=== PATIENT | female | born 1955 | race Caucasian/White ===

== ENCOUNTER 2020-10-07 13:37 | Outpatient (CLI) | payer OTHER, SELFPAY ==
--- NOTE | ~2020-10-07 | US_ITS ---
EXAMINATION: US venous doppler [facility] EXAM DATE: 10/07/2020 14:17 INDICATION: Left foot and leg pain. TECHNIQUE: Multiple grayscale, color flow and Doppler images of the left lower extremity deep venous system were obtained and reviewed. There is no prior study for comparison. FINDINGS: The left common femoral, femoral and profunda veins demonstrate normal color flow, respirat ory variation, augmentation and compressibility. Compressibility, color flow confirmed within the le ft popliteal, posterior tibial, peroneal, and greater saphenous veins. IMPRESSION: 1. No left lower extremity deep venous thrombosis. Reviewed, dictated and finalized at location A. OVEMENT SPEC
== END 2020-10-07 13:38 | disposition home or self-care (01) ==
PROVIDERS: PCP Registered Nurse; Visit Provider Registered Nurse
DX: M79.605 Pain in left leg (principal)
CPT/HCPCS: 93971

== ENCOUNTER 2021-06-30 09:13 | Outpatient (CLI) | payer OTHER, SELFPAY ==
--- NOTE | 2021-07-07 12:41 | WPDHOLTEREM ---
Holter/Event Monitor Holter/Event Monitor Date of procedure: 06/30/21 Holter/Event Procedure: 48 Hr Holter Monitor Indications: Palpitations Conclusion: 1. 48 hour holter monitor on 06/30/21. 2. Predominant rhythm is sinus rhythm. HR range 52-112 bpm; average HR 77 bpm. 3. There are 98 premature supraventricular complexes, 13 supraventricular couplets. There are 3 episodes of atrial tachycardia, fastest at 152 bpm and longest lasting 8 beats. 4. There are 9 premature ventricular complexes. No ventricular tachycardia. 5. No sinoatrial or atrioventricular blocks. No significant pauses greater than 2 seconds. 6. Patient reports symptoms of chest pain, twinges, heart beating faster which demonstrate sinus rhythm, HR range 75-85 bpm and an atrial triplet.
== END 2021-06-30 09:14 | disposition home or self-care (01) ==
PROVIDERS: PCP Registered Nurse; Visit Provider Registered Nurse
DX: R00.2 Palpitations (principal)
CPT/HCPCS: 93225; 93226

== ENCOUNTER → 2022-01-23 11:17 | Outpatient (CLI) | payer BC, SELFPAY ==
--- NOTE | ~2022-01-23 | CT_ITS ---
EXAMINATION: CT abdomen pelvis w con DATE: 01/23/2022 11:57 INDICATION: Left lower quadrant abdominal pain. TECHNIQUE: Computed tomography (CT) of the abdomen and pelvis was performed with 100 mL Omnipaque 350 intravenous contrast. Automated exposure control and iterative reconstruction technique were employe d. The dose-length product was 725.50 mGy-cm. COMPARISON: None. FINDINGS: The visualized portions of the lung bases demonstrate mild atelectasis. No pleural effusion . The heart size is normal. No pericardial effusion. The liver, spleen, pancreas, and adrenal glands are normal. There are changes of cholecystectomy. There is a 5 mm cyst in right kidney. Left kidney i s normal. There is diverticulosis of the colon without evidence of diverticulitis. There are no dilat ed loops of bowel. The appendix is normal. There are no pathologically enlarged lymph nodes. There is no free intraperitoneal fluid. There is mild thoracolumbar spondylosis. Lumbar levoscoliosis is note d. IMPRESSION: 1. No etiology for the patient's symptoms. Reviewed, dictated and finalized at location B.
[2022-01-23 11:46] LABS: Estimated Glomerular Filt Rate > 60
== END ==
PROVIDERS: PCP Registered Nurse; Visit Provider Registered Nurse
DX: R10.32 Left lower quadrant pain (principal); M47.815 Spondylosis without myelopathy or radiculopathy, thoracolumbar region; N28.1 Cyst of kidney, acquired; M41.9 Scoliosis, unspecified
CPT/HCPCS: 74177; Q9967

== ENCOUNTER 2022-04-16 12:50 | Outpatient (CLI) | payer BC, SELFPAY ==
--- NOTE | ~2022-04-16 | DEXA_ITS ---
Bone Density Report Name: DAHIANA JAQUEZ Age: 66 Sex: Female Ethnicity: White Date of : 1955 Indication: postmenopausal; screening for osteoporosis; height loss; hysterectomy; Referring Provider: SHAWNA, TYESHA Study: Bone densitometry was performed. Exam Date: April 16, 2022 Accession number: [id number] Bone Density: Region BMD T-score Z-score Classification AP Spine(L1-L4) 1.166 1.1 2.9 Normal Femoral Neck (Left) 0.830 -0.2 1.4 Normal Total Hip (Left) 0.954 0.1 1.4 Normal Femoral Neck (Right) 0.820 -0.3 1.3 Normal Total Hip (Right) 0.939 0.0 1.2 Normal Total Hip Mean 0.946 0.1 1.3 Normal World Health Organization criteria for BMD impression classify patients as: Normal (T-score at or above -1.0), Osteopenia (T-score between -1.0 and -2.5), or Osteoporosis (T-score at or below -2.5). 10-year Fracture Risk: FRAX not reported because: All T-scores for Spine Total, Hip Total, Femoral Neck at or above -1.0 Clinical Information Provided by Patient: Has the following medical conditions: Hysterectomy Patient maximum height was 65.5 Menopause Age: 56 Onset of menses at age 15 Number of children 3 Impression: The patient has normal bone mass. Discussion: BONE DENSITY IS ABOVE THE MINIMUM DESIRABLE LEVEL AT ALL SKELETAL SITES TESTED. This patient?s bone mineral density is above the minimum desirable level (T-score -1.0 or better) at all sites measured. The patient should follow a healthful lifestyle (good nutrition with adequate calcium and vitamin D, and appropriate weight-bearing exercise). Follow-Up: Consider repeating this study in 5 years or sooner if there is some new clinical indication. Reported by: [facility] on 04/16/2022 1:23:00 PM. Reviewed, dictated and finalized at location [facility]
== END 2022-04-16 12:51 | disposition home or self-care (01) ==
PROVIDERS: PCP Registered Nurse; Visit Provider Registered Nurse
DX: Z78.0 Asymptomatic menopausal state (principal)
CPT/HCPCS: 77080